=== PATIENT | male | born 1955 | race African-American/Black ===

== ENCOUNTER 2017-10-27 21:38 | Emergency (ER) | payer OTHER ==
[~2017-10-27] VITALS: Ht 172.7 cm; Wt 75.2 kg
[2017-10-27] MEDS ORDERED: PERCOCET 10/1 TABLET PO (23:24)
[2017-10-27 23:37] VITALS: BP 124/82
== END 2017-10-27 23:38 | disposition home or self-care (01) ==
LOC: EME 21:38
DX: G89.18 Other acute postprocedural pain (principal); M54.42 Lumbago with sciatica, left side; M54.41 Lumbago with sciatica, right side; Z96.653 Presence of artificial knee joint, bilateral; Z87.442 Personal history of urinary calculi; Z90.81 Acquired absence of spleen
CPT/HCPCS: 93971; 99281; 99283

== ENCOUNTER 2017-11-09 12:39 | Emergency (ER) | payer OTHER ==
[~2017-11-09] VITALS: Ht 172.7 cm; Wt 75.5 kg
[~2017-11-09 12:39] MED LIST: PERCOCET 10/1 TABLET PO
[2017-11-09] MEDS ORDERED: FLEXERIL10 MG PO (13:30)
[2017-11-09] MEDS ORDERED: MOTRIN800 MG PO (13:30)
[2017-11-09 13:56] VITALS: BP 124/86
== END 2017-11-09 13:59 | disposition home or self-care (01) ==
LOC: EME 12:39
DX: G89.29 Other chronic pain (principal); M25.562 Pain in left knee; M25.561 Pain in right knee; Z96.653 Presence of artificial knee joint, bilateral
CPT/HCPCS: 99281; 99284

== ENCOUNTER 2017-12-12 18:10 | Emergency (ER) | payer OTHER ==
[~2017-12-12] VITALS: Ht 172.7 cm; Wt 79.5 kg
[~2017-12-12 18:10] MED LIST changes: +FLEXERIL10 MG PO; +MOTRIN800 MG PO
[2017-12-12] MEDS ORDERED: PEN-VEE K,VEET500 MG PO (20:48)
[2017-12-12] MEDS ORDERED: PERCOCET 5/31 TABLET PO (20:58)
[2017-12-12 21:26] VITALS: BP 142/93
== END 2017-12-12 21:27 | disposition home or self-care (01) ==
LOC: EME 18:10
DX: K08.89 Other specified disorders of teeth and supporting structures (principal)
CPT/HCPCS: 99281; 99283; J3010